=== PATIENT | female | born 1995 | race Caucasian/White ===

== ENCOUNTER → 2017-11-03 | Emergency (ER) | payer OTHER ==
[~2017-11-03] VITALS: Ht 172.7 cm; Wt 53.1 kg
[~2017-11-03] MED LIST: PREVACID15 MG
== END | disposition home or self-care (01) ==
LOC: ER 05:48
DX: R10.2 Pelvic and perineal pain (principal)

== ENCOUNTER 2018-04-10 09:24 | Emergency (ER) | payer OTHER ==
[~2018-04-10] VITALS: Ht 172.7 cm; Wt 49.9 kg
[2018-04-10] MEDS ORDERED: PROTONIX20 MG (09:56)
== END 2018-04-10 15:55 | disposition home or self-care (01) ==
LOC: ER 09:24
DX: R10.2 Pelvic and perineal pain (principal)

== ENCOUNTER 2018-07-15 09:54 | Emergency (ER) | payer OTHER ==
[~2018-07-15] VITALS: Ht 172.7 cm; Wt 49.9 kg
[~2018-07-15 09:54] MED LIST changes: +PROTONIX20 MG
== END 2018-07-15 13:27 | disposition home or self-care (01) ==
LOC: ER 09:54
DX: S60.211A Contusion of right wrist, initial encounter (principal); W10.8XXA Fall (on) (from) other stairs and steps, initial encounter; Y93.89 Activity, other specified; Y92.89 Other specified places as the place of occurrence of the external cause; Y99.8 Other external cause status

== ENCOUNTER 2019-01-29 08:52 | Emergency (ER) | payer OTHER ==
[~2019-01-29] VITALS: Ht 172.7 cm; Wt 49.9 kg
== END 2019-01-29 17:39 | disposition home or self-care (01) ==
LOC: ER 08:52
DX: K29.70 Gastritis, unspecified, without bleeding (principal)

== ENCOUNTER 2020-06-04 21:38 | Emergency (ER) | payer OTHER ==
[~2020-06-04] VITALS: Ht 172.7 cm; Wt 51.7 kg
[2020-06-05] MEDS ORDERED: INTESTINEX680 M2 PO (00:48)
[2020-06-05] MEDS ORDERED: PEPCID AC20 MG PO (00:48)
== END 2020-06-05 00:54 | disposition home or self-care (01) ==
LOC: ER 21:38
DX: K29.00 Acute gastritis without bleeding (principal); K52.89 Other specified noninfective gastroenteritis and colitis; Z20.828 Contact with and (suspected) exposure to other viral communicable diseases

== ENCOUNTER 2021-09-24 13:27 | Emergency (ER) | payer OTHER ==
[~2021-09-24] VITALS: Ht 172.7 cm; Wt 53.1 kg
[~2021-09-24 13:27] MED LIST changes: +INTESTINEX680 M2 PO; +PEPCID AC20 MG PO
== END 2021-09-24 15:27 | disposition home or self-care (01) ==
LOC: ER 13:27
DX: J03.90 Acute tonsillitis, unspecified (principal); R07.0 Pain in throat

== ENCOUNTER 2022-07-11 21:57 | Emergency (ER) | payer OTHER ==
[~2022-07-11] VITALS: Ht 172.7 cm; Wt 53.5 kg
[2022-07-12] MEDS ORDERED: INTESTINEX680 M1 PO (05:19)
[2022-07-12] MEDS ORDERED: CIPRO500 MG PO (05:19)
== END 2022-07-12 05:24 ==
LOC: ER 21:57
DX: K52.9 Noninfective gastroenteritis and colitis, unspecified (principal); A49.3 Mycoplasma infection, unspecified site; R10.9 Unspecified abdominal pain